=== PATIENT | female | born 1980 | race Caucasian/White ===

== ENCOUNTER 2018-02-08 15:27 | Emergency (ER) | payer MEDICAID ==
[~2018-02-08] VITALS: Ht 167.6 cm; Wt 63.5 kg
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
[2018-02-08] MEDS ORDERED: ACETAMINOPHEN 325 MG TABLET PO ONE (16:00)
[2018-02-08] MEDS ORDERED: ACETAMINOPHEN 325 MG TABLET ONE (16:01)
--- NOTE | 2018-02-08 16:02 | NUR ---
URINE SENT TO LAB
[2018-02-08 16:59] VITALS: BP 128/72
[2018-02-08] MEDS ORDERED: CYCLOBENZAPRINE 10 MG TABLET ONE (16:59)
[2018-02-08] MEDS ORDERED: CYCLOBENZAPRINE 10 MG TABLET PO ONE (17:00)
== END 2018-02-08 17:04 | disposition home or self-care (01) ==
LOC: ER 15:28
DX: S70.02XA Contusion of left hip, initial encounter (principal); Z90.89 Acquired absence of other organs; Z88.6 Allergy status to analgesic agent; V43.52XA Car driver injured in collision with other type car in traffic accident, initial encounter; Y93.89 Activity, other specified; Y92.89 Other specified places as the place of occurrence of the external cause; Y99.8 Other external cause status
CPT/HCPCS: 73503; 84703; 99285; A4606; Z7610; 73502